=== PATIENT | male | born 1960 | race Caucasian/White ===

== ENCOUNTER → 2017-11-01 | Outpatient (CLI) | payer OTHER ==
[2017-11-01] MEDS: REGADENOSON 0.4 MG/5 ML DISP.SYRIN. IV (09:00)
== END | disposition home or self-care (01) ==
LOC: ECHO 07:26
DX: I25.119 Atherosclerotic heart disease of native coronary artery with unspecified angina pectoris (principal); I10 Essential (primary) hypertension; J44.9 Chronic obstructive pulmonary disease, unspecified
CPT/HCPCS: 78452; 93017; 93306; 96374; 96375; 96376; A9500; J2785

== ENCOUNTER → 2019-09-03 | Outpatient (CLI) | payer MEDICAID ==
[2016-08-25 09:15] VITALS: BP 116/69
[~2019-09-03] MED LIST: ATOR40TA59 PO; DILT180C67 PO; GABA800T PO; ISOS30TA4 PO; LISI10TA2 PO; MULT-659 PO; NASAL SPRAY NS; NITR0.4T22 SL; OMEP40CA45 PO; OXYC1TAB15 PO; OXYC20TA34 PO; POLY17PO29 PO; PROVENTIL HFA6.7 GM IH; SULF1TAB24 PO
--- NOTE | 2019-09-03 11:06 | CARD ---
MR#: [id number] Date of Study: 09/03/2019 Ordering Physician: LEVI WYNN, Referring Physician: LEVI WYNN, Tech: Anila Fuentes APPROVED REPORT EXAM: Two-dimensional and M-mode echocardiogram with Doppler and color Doppler. Other Information Quality : FairHR: 71bpm Technically limited study due to smoking & COPD INDICATION Cardiac Disease: CAD 2D DIMENSIONS IVSd0.9 (0.7-1.1cm)Aortic Root(2D)3.7 (2.0-3.7cm) LVDd5.1 (3.9-5.9cm)LVOT Diameter2.2 (1.8-2.4cm) PWd1.1 (0.7-1.1cm)LVDs3.6 (2.5-4.0cm) FS (%) 29.8 %SV69.0 ml LVEF(%)56.7 (>50%) Aortic Valve AoV Peak Juma.138.2cm/sAoV VTI27.1cm AO Peak GR.7.6mmHgLVOT Peak Juma.88.8cm/s LVOT VTI 18.43cmAO Mean GR.4mmHg DRAGAN (VMAX)1.93co2KTT (VTI)2.58cm2 Mitral Valve MV E Rpcbrstr10.2cm/sMV DECEL [id number] MV A Nvserpwr10.4cm/sMV NSF24qu E/A Ratio1.1MVA (PHT)3.18cm2 TDI E/Lateral E'4.3E/Medial E'5.2 Tricuspid Valve TR P. Kjcfmmur378zn/sRAP EZKJJFQD8myDm TR Peak Gr.39cqWiQTIN98bmNd Pulmonary Vein S1 Qadgnnam11.9cm/sD2 Mhdjlqlh85.7cm/s PVa [id number] LEFT VENTRICLE The left ventricle is normal size. There is normal left ventricular wall thickness. The left ventricu lar systolic function is normal and the ejection fraction is within normal range. The Ejection Fracti on is 55%. There is normal LV segmental wall motion. The left ventricular diastolic function and fill ing is normal for age. RIGHT VENTRICLE The right ventricle is normal size. There is normal right ventricular wall thickness. The right ventr icular systolic function is normal. ATRIA The left atrium size is normal. The right atrium is borderline dilated. The interatrial septum is int act with no evidence for an atrial septal defect or patent foramen ovale as noted on 2-D or Doppler i maging. AORTIC VALVE The aortic valve is normal in structure and function. Doppler and Color Flow revealed no significant aortic regurgitation. There is no significant aortic valvular stenosis. MITRAL VALVE The mitral valve is normal in structure and function. There is no evidence of mitral valve prolapse. There is no mitral valve stenosis. Doppler and Color-flow revealed trace mitral regurgitation. TRICUSPID VALVE The tricuspid valve is normal in structure and function. Doppler and Color Flow revealed trace tricus pid regurgitation with an estimated PAP fo35 mmHg. There is no tricuspid valve stenosis. PULMONIC VALVE The pulmonary valve is normal in structure and function. Doppler and Color Flow revealed no pulmonic valvular regurgitation. There is no pulmonic valvular stenosis. GREAT VESSELS The aortic root is normal in size. The IVC is normal in size and collapses >50% with inspiration. PERICARDIAL EFFUSION There is no evidence of significant pericardial effusion. Critical Notification Critical Value: No <Conclusion> The left ventricular systolic function is normal and the ejection fraction is within normal range. Th e Ejection Fraction is 55%. There is normal LV segmental wall motion. Signed by : Wu Hdez, Electronically Approved : 09/03/2019 11:06:02
== END | disposition home or self-care (01) ==
LOC: ECHO 08:35
PROVIDERS: ATTEND Internal Medicine Cardiovascular Disease
DX: I25.119 Atherosclerotic heart disease of native coronary artery with unspecified angina pectoris (principal); J44.9 Chronic obstructive pulmonary disease, unspecified; F17.200 Nicotine dependence, unspecified, uncomplicated
CPT/HCPCS: 93306

== ENCOUNTER → 2021-09-01 | Outpatient (CLI) | payer MEDICAID ==
[2016-08-25 09:15] VITALS: BP 116/69
[~2021-09-01] MED LIST changes: -ISOS30TA4 PO; +ISOS30TA68 PO; +LISI10TA16 PO; -LISI10TA2 PO; -OMEP40CA45 PO; +OMEP40CA7 PO; +REGADENOSON 0.4 MG/5 ML DISP.SYRIN. IV ONE
--- NOTE | 2021-09-01 08:41 | RAD ---
EXAMINATION: CT chest without IV contrast INDICATION:60 years, Male, smoking history. Screening for lung cancer. COMPARISON: 06/03/2015 TECHNIQUE: Low-dose CT scan of the chest with 3-D MIP coronal and sagittal reconstructions was acquir ed. Exposure: One or more of the following individualized dose reduction techniques were utilized for [facility] s examination: 1. Automated exposure control 2. Adjustment of the mA and/or kV according to patient size 3. Use of iterative reconstruction technique. Lung-RADS assessment categories: 0: Incomplete. Additional lung cancer screening CT images and/or comparison to prior chest CT examina tions is needed. 1: Negative. Continue annual screening with low dose CT (LDCT) in 12 months. 2: Benign appearance or behavior. Continue annual screening with LDCT in 12 months. 3: Probably benign. 6 month follow-up LDCT recommended. 4A: Suspicious. 3 month LDCT follow up, PET/CT may be used when there is ? 8mm (? 268 mm3) solid comp onent. 4B or 4X: Very Suspicious. Chest CT with or without contrast, PET/CT, and/or biopsy recommended. PET/ CT may be used when there is ? 8mm (? 268 mm3) solid component. For new large nodules that develop on an annual repeat screening CT, a 1 month LDCT may be recommended to address potentially infectious o r inflammatory conditions. Modifiers: S: Clinically significant or potentially clinically significant findings (non-lung cancer). Exposure: One or more of the following individualized dose reduction techniques were utilized for [facility] s examination: 1. Automated exposure control 2. Adjustment of the mA and/or kV according to patient size 3. Use of iterative reconstruction technique. FINDINGS: LUNGS/PLEURA: Central airways are patent. Moderate centrilobular and paraseptal emphysema particularl y in the upper lobes, slightly worsening since prior exam. Calcified granuloma in the right upper lob e. Stable 8 mm solid soft tissue nodule with punctate calcifications in the right lung base since May ust 2014, most likely representing partially calcified granulomatous disease. There is a 2.6 mm solid pulmonary nodule in the right upper lobe (series 2 image 119), this nodule is not visualized on the previous exam. There is a 2 mm upper lobe pulmonary nodule (series 2 image 178), stable since prior e xam. Additional, stable 2.4 mm pulmonary nodule in the right lung apex since prior exam (series 2 corwin ge 49). No pleural effusion or focal pleural lesion. MEDIASTINUM: No pathologic mediastinal or hilar adenopathy. Calcified right hilar lymph node. The tho racic aorta and pulmonary arteries are normal in caliber. The heart is normal in size. No pericardial effusion. Moderate calcified coronary atherosclerosis. The visualized thyroid and the esophagus are unremarkable. AXILLA/SOFT TISSUE: No supraclavicular or axillary adenopathy. Regional soft tissues are within renea l limits. UPPER ABDOMEN: Calcified granulomas in the spleen. BONES: No evidence of acute fractures or aggressive osseous lesions. Multilevel degenerative changes in the thoracic spine. IMPRESSION: 1. Lung-RADS 2: Benign appearance or behavior. Continue annual screening with LDCT in 12 months. 2. Few sub-5 mm pulmonary nodules in the right upper lobe, some of them are stable since 2015. 6 3. Moderate pulmonary emphysema, slightly worsened since prior exam. Electronically signed by: Carlos Zazueta MD (09/01/2021 8:38 AM) [id number]
--- NOTE | 2021-09-01 19:10 | RAD ---
MR#: [id number] Date of Study: 09/01/2021 Ordering Physician: HÉCTOR BATES, Referring Physician: JANNETH ROSAS Tech: RT Corbin ConnR) (N) APPROVED REPORT Test Type: Pharmacological Stress Nurse/Tech: Davis Rueda RN Test Indications: CAD Cardiac History: cardiac cath 8 years ago, DM, asthma, HTN, smoker Medications: See Electronic Medical Record Medical History: See Electronic Medical Record Resting ECG: SR Resting Heart Rate: 66 bpm Resting Blood Pressure: 140/85mmHg Pretest Chest Pain: None Nurse/Tech Notes Lungs CTA, S1S2 Consent: The procedure was explained to the patient in lay terms. Informed consent was witnessed. Satnam eout was entered into [employer]. History and Stress Test performed by RT Corbin ConnR) (N) Pharm. Details Pharmacologic stress testing was performed using 0.4mg per 5ml of regadenoson given intravenously ove r 7-10 seconds. Stress Symptoms No chest pain or symptoms. POST EXERCISE Reason for Termination: Infusion complete Max HR: 97 bpm Max Blood Pressure: 159/85mmHg Blood Pressure response to exercise: Normal blood pressure response during stress. Heart Rate response to exercise: normal response Chest Pain: No. Arrhythmia: No. ST Change: No. INTERPRETATION Stress EKG Conclusion: No evidence of stress-induced EKG changes Imaging Protocol IMAGE PROTOCOL: Rest Tc-99m/stress Tc-99m 1 day Rest: Stress: Viability: Radiopharm.Tc99m [id number] Sestamibi Dose10.2mCi 31mCi Duration 13min. 13min. Img Date 09/01/2021 09/01/2021 Inj-Img [id number]. 60min. Rest Admin Site:IV - Right AntecubitalAdministrator:EBENEZER Campbell, ARRT (R)(N) Stress Admin Site: IV - Right AntecubitalAdministrator: EBENEZER Campbell, ARRT (R)(N) STRESS DATA End Diast. Vol.165.0mlLVEDV index BSA86.0ml End Syst. Vol.65.0mlLVESV index BSA34.0ml Myocardial Hndg228.0gEject. Qizsgtax35.0% Stress Scores Regional WT2.00Summed WT20.00 Regional WM0.00Summed WM3.00 The rest and stress images show normal perfusion, normal contraction and thickening. LV Perf. Quant 17 Seg. SSS0.00 17 Seg. SRS2.00 17 Seg. SDS0.00 Stress Defect Extent (% LAD)0.00Rest Defect Extent (% LAD)0.60Rev. Defect Extent (% LAD)0.00 Stress Defect Extent (% LCX) 0.00Rest Defect Extent (% LCX)0.00Rev. Defect Extent (% LCX)0.00 Stress Defect Extent (% RCA)0.00Rest Defect Extent (% RCA)13.30Rev. Defect Extent (% RCA)0.00 Stress Defect Extent (% NELIA)0.00Rest Defect Extent (% NELIA)4.80Rev. Defect Extent (% NELIA)0.00 Other Information Quality:Average Risk Assessment: Low Risk Conclusion 1. No evidence of EKG changes with stress testing. Transient ectopic atrial rhythm resolved prior to completion of test. 2. Normal perfusion at stress/rest. 3. Low risk study. 4. EF > 60%. Signed by : Wu Hdez, Electronically Approved : 09/01/2021 19:09:36
== END ==
LOC: CT 08:30
PROVIDERS: ATTEND Family Medicine
DX: Z12.2 Encounter for screening for malignant neoplasm of respiratory organs (principal); R91.8 Other nonspecific abnormal finding of lung field; J43.2 Centrilobular emphysema; J84.10 Pulmonary fibrosis, unspecified; F17.200 Nicotine dependence, unspecified, uncomplicated; D73.89 Other diseases of spleen; M47.814 Spondylosis without myelopathy or radiculopathy, thoracic region
CPT/HCPCS: 71271; 78452; 93017; A9500; J2785